=== PATIENT | male | born 1950 | race Caucasian/White ===

== ENCOUNTER 2016-11-14 08:41 | Outpatient (CLI) | payer OTHER ==
[2016-11-14 12:31] LABS: #Basophils 0.1 thou/uL (0.0-0.2); #Eosinphils 0.4 thou/uL (0.0-0.7); #Lymphocytes 2.5 thou/uL (1.20-3.40); #Monocytes 0.6 thou/uL (0.11-0.59); #Neutrophils 3.7 thou/uL (1.40-6.50); %Basophils 1.5 % (0.0-1.0); %Eosinophils 5.8 % (0.0-10.0); %Lymphocytes 33.9 % (21.0-51.0); %Monocytes 8.2 % (0.0-10.0); %Neutrophils 50.5 % (42.0-75.0); Hemoglobin 14.1 g/dL (14.0-18.0); Mean Corpuscular HGB CONC 32.3 g/dL (32.0-36.0); Mean Corpuscular Hemoglobin 29.3 pg (27.0-31.0); Mean Corpuscular Volume 90.7 fl (80.0-94.0); Mean Platelet Volume 8.3 fL (7.4-10.4); Platelet Count 284 thou/uL (130-400); RBC Distribution Width 12.4 % (11.5-14.5); Red Blood Cell (RBC) Count 4.81 mill/uL (4.70-6.10); White Blood Cell (WBC) Count 7.2 thou/uL (4.8-10.8)
[2016-11-14 12:44] LABS: ALT (SGPT) 21 U/L (8-55); AST (SGOT) 24 U/L (5-34); Albumin 4.2 g/dL (3.4-4.8); Alkaline Phosphatase 36 U/L (40-150); Anion Gap 17 mmol/L (10-20); BUN (Urea Nitrogen) 17 mg/dL (8.4-25.7); Bilirubin, Direct 0.2 mg/dL (0.1-0.3); Bilirubin, Total 0.6 mg/dL (0.2-1.2); Calc. Creatinine Clearance 0 mL/min (70-130); Calcium 9.2 mg/dL (7.8-10.44); Carbon Dioxide 23 mmol/L (23-31); Cardiac Risk 3.2 (Less than 4.5); Chloride 105 mmol/L (98-107); Cholesterol 191 mg/dl (< 200 Desired); Estimated GFR-MDRD 56; Glucose 104 mg/dL (80-115); HDL Cholesterol 60 mg/dL (>60 Neg Risk); LDL Cholesterol, Calculated 113 mg/dL; Potassium 4.9 mmol/L (3.5-5.1); Protein, Total 6.9 g/dL (5.8-8.1); Sodium 140 mmol/L (136-145); Triglycerides 89 mg/dL (Less than 150)
[2016-11-14 13:55] LABS: Hemoglobin A1c 5.6 % (4.0-6.0)
== END 2016-11-14 08:42 | disposition home or self-care (01) ==
LOC: NAVSJIPCSP 08:41
DX: E78.5 Hyperlipidemia, unspecified (principal); J45.909 Unspecified asthma, uncomplicated; Z79.899 Other long term (current) drug therapy
CPT/HCPCS: 36415; 80048; 80061; 80076; 83036; 84443; 85025

== ENCOUNTER 2019-05-27 08:13 | Outpatient (CLI) | payer MEDICARE ==
--- NOTE | 2019-05-27 11:53 | ULT ---
ULTRASOUND RETROPERITONEUM LIMITED: (ABDOMINAL AORTA) DATE: 05/27/2019 HISTORY: 69-year-old male for screening for abdominal aortic aneurysm FINDINGS: The caliber of the entire abdominal aorta is within normal limits. IMPRESSION: No abdominal aortic aneurysm.
--- NOTE | 2019-05-28 13:50 | ULT ---
"PRELIMINARY REPORT" ULTRASOUND RETROPERITONEUM LIMITED: (ABDOMINAL AORTA) DATE: 05/27/2019 HISTORY: 69-year-old male for screening for abdominal aortic aneurysm FINDINGS: The caliber of the entire abdominal aorta is within normal limits. IMPRESSION: No abdominal aortic aneurysm. Transcribed Date/Time: 05/28/2019 1:50 PM
== END 2019-05-27 08:14 | disposition home or self-care (01) ==
LOC: NAV ULT 08:13
PROVIDERS: ATTEND Family Medicine
DX: Z13.6 Encounter for screening for cardiovascular disorders (principal)
CPT/HCPCS: 76706; 76775

== ENCOUNTER 2020-07-02 12:19 | Outpatient (CLI) | payer MEDICARE | END 2020-07-02 12:20 | disposition home or self-care (01) | LOC: NAV RAD 12:19 | PROVIDERS: ATTEND Family Medicine | DX: S69.92XA Unspecified injury of left wrist, hand and finger(s), initial encounter (principal) ==

== ENCOUNTER 2020-11-16 09:35 | Outpatient (CLI) | payer MEDICARE | END 2020-11-16 09:36 | disposition home or self-care (01) | LOC: NAV RAD 09:35 | PROVIDERS: ATTEND Family Medicine | DX: M79.89 Other specified soft tissue disorders (principal) ==